=== PATIENT | male | born 1975 | race Caucasian/White ===

== ENCOUNTER 2022-02-13 10:37 | Emergency (ER) | payer OTHER ==
[~2022-02-13] VITALS: Ht 182.8 cm; Wt 181.4 kg
[2022-02-13] MEDS ORDERED: PREDNISONE50 MG PO (11:05)
== END 2022-02-13 11:34 | disposition home or self-care (01) ==
LOC: ED 10:37
DX: M54.50 Low back pain, unspecified (principal)